=== PATIENT | male | born 1995 | race Hispanic/Latino ===

== ENCOUNTER 2021-04-07 12:20 | Inpatient (IN) | payer SELFPAY ==
[2021-04-07] VITALS (8 sets, daily range): BP systolic 97–132; BP diastolic 53–75
[~2021-04-07] VITALS: Ht 170.2 cm; Wt 106.6 kg
[2021-04-07] MEDS ORDERED: SODIUM CHLORIDE 0.9% 1000ML 1,000 ML IV STA (12:53)
[2021-04-07] MEDS ORDERED: ONDANSETRON HCL INJ 2MG/ML 2ML 2 MG/ML VIAL IV NR (13:00)
[2021-04-07 13:07] LABS: BASOPHILS % 0.2 % (0.0-1.0); HEMATOCRIT 50.6 % (38.2-49.6); HEMOGLOBIN 17.3 g/dL (14.0-18.0); LYMPHOCYTES # (AUTO) 1.2 (1.0-3.2); LYMPHOCYTES % 18.4 % (18.0-39.1); MEAN CORPUSCULAR HEMOGLOBIN 28.8 pg (28-32); MEAN CORPUSCULAR HGB CONC 34.2 g/dL (31-35); MEAN CORPUSCULAR VOLUME 84.3 fL (81-99); MONOCYTES # (AUTO) 0.4 (0.2-0.8); MONOCYTES % 6.3 % (4.4-11.3); NEUTROPHILS # (AUTO) 4.7 (2.1-6.9); NEUTROPHILS % 74.8 % (38.7-80.0); PLATELET COUNT 164 x10e3/uL (140-360); RED CELL DISTRIBUTION WIDTH 12.4 % (11.7-14.4)
[2021-04-07 13:16] LABS: INR 0.98; PROTHROMBIN TIME 13.2 seconds (11.9-14.5)
[2021-04-07 13:17] LABS: PARTIAL THROMBOPLASTIN TIME 35.3 seconds (23.8-35.5)
[2021-04-07 13:24] LABS: ALBUMIN 3.7 g/dL (3.5-5.0); ALBUMIN/GLOBULIN RATIO 0.8 (0.8-2.0); ANION GAP 20.4 mmol/L (8-16); CALCIUM 8.8 mg/dL (8.4-10.2); CREATININE, SERUM 1.34 mg/dL (0.72-1.25); POTASSIUM 3.4 mmol/L (3.5-5.1)
[2021-04-07 13:30] LABS: CREATINE KINASE MB 0.4 ng/mL (0-5.0)
[2021-04-07] MEDS ORDERED: REMDESIVIR 200MG 200 MG in SODIUM CHLORIDE 0.9% 100 ML 100 ML IV ONE ×2 (13:30→15:00)
[2021-04-07] MEDS: CEFTRIAXONE 1 GM in SODIUM CHLORIDE 0.9% 50ML 50 ML IV SCH (13:31)
[2021-04-07] MEDS ORDERED: REMDESIVIR 100MG 100 MG in SODIUM CHLORIDE 0.9% 100 ML IV SCH (15:30)
[2021-04-07] MEDS ORDERED: POTASSIUM CHLORIDE 20 MEQ TAB CR PO STA (16:47)
[2021-04-07] MEDS ORDERED: SODIUM CHLORIDE 0.9% 1000ML 1,000 ML IV ONE (17:00)
[2021-04-07] MEDS ORDERED: ZOLPIDEM TARTRATE 5 MG TAB PO PRN (17:00)
[2021-04-07] MEDS: ASCORBIC ACID 500 MG TAB PO SCH (17:33)
[2021-04-07] MEDS: ENOXAPARIN SOD INJ 40 MG/0.4 ML SYR SC SCH (20:43)
[2021-04-07] MEDS ORDERED: SALINE 0.65% NAS SOLN 1 SPRAY BTL PRN (21:00)
[2021-04-08] VITALS (24 sets, daily range): BP systolic 97–131; BP diastolic 50–90
[2021-04-08] MEDS ORDERED: DOCUSATE SODIUM 100 MG CAP PO PRN (05:30)
[2021-04-08] MEDS ORDERED: GUAIFENESIN/DEXTROMETHORPHAN LIQD 5 ML UDC NG PRN (05:30)
[2021-04-08 06:27] LABS: HEMATOCRIT 41.1 % (38.2-49.6); LYMPHOCYTES % 20.8 % (18.0-39.1); MEAN CORPUSCULAR HEMOGLOBIN 28.8 pg (28-32); MEAN CORPUSCULAR HGB CONC 33.6 g/dL (31-35); MEAN CORPUSCULAR VOLUME 85.8 fL (81-99); MONOCYTES # (AUTO) 0.3 (0.2-0.8); MONOCYTES % 6.5 % (4.4-11.3); NEUTROPHILS # (AUTO) 3.6 (2.1-6.9); NEUTROPHILS % 72.3 % (38.7-80.0); PLATELET COUNT 186 x10e3/uL (140-360); RED BLOOD COUNT 4.79 x10e6/uL (4.3-5.7); RED CELL DISTRIBUTION WIDTH 12.7 % (11.7-14.4)
[2021-04-08 06:34] LABS: HEMOGLOBIN 13.8 g/dL (14.0-18.0)
[2021-04-08 07:25] LABS: ALBUMIN 2.9 g/dL (3.5-5.0); ALBUMIN/GLOBULIN RATIO 0.7 (0.8-2.0); ANION GAP 15.5 mmol/L (8-16); CREATININE, SERUM 0.81 mg/dL (0.72-1.25); POTASSIUM 3.5 mmol/L (3.5-5.1)
[2021-04-08 07:28] LABS: CHOL/HDL RATIO 3.4 (3.9-4.7)
[2021-04-08] MEDS ORDERED: ACETAMINOPHEN 1000 MG/100 ML IV STA (07:46)
[2021-04-08] MEDS: DEXAMETHASONE SOD PHOS 10 MG/1 ML VIAL IV SCH (08:02)
[2021-04-08] MEDS: CEFTRIAXONE 1 GM in SODIUM CHLORIDE 0.9% 50ML 50 ML IV SCH (08:02)
[2021-04-08] MEDS: BENZONATATE 100 MG CAP PO SCH ×3 (08:03→20:09)
[2021-04-08] MEDS: LORATADINE 10 MG TAB PO SCH (08:03)
[2021-04-08] MEDS: ZINC SULFATE 50 MG CAP PO SCH (08:03)
[2021-04-08] MEDS: ASCORBIC ACID 500 MG TAB PO SCH ×2 (08:03→17:27)
[2021-04-08] MEDS: ENOXAPARIN SOD INJ 40 MG/0.4 ML SYR SC SCH ×2 (10:27→20:09)
[2021-04-08] MEDS ORDERED: REMDESIVIR 100MG 100 MG IV SCH (14:00)
[2021-04-08] MEDS ORDERED: REMDESIVIR 100MG 100 MG in SODIUM CHLORIDE 0.9% 100 ML IV SCH (15:30)
[2021-04-08] MEDS: REMDESIVIR 100MG 100 MG in SODIUM CHLORIDE 0.9% 100 ML IV SCH (15:42)
[2021-04-08] MEDS: ZOLPIDEM TARTRATE 5 MG TAB PO PRN (23:22)
[2021-04-09] VITALS (24 sets, daily range): BP systolic 90–134; BP diastolic 44–103
[2021-04-09 05:03] LABS: BASOPHILS % 0.2 % (0.0-1.0); HEMATOCRIT 41.6 % (38.2-49.6); HEMOGLOBIN 13.8 g/dL (14.0-18.0); LYMPHOCYTES % 21.7 % (18.0-39.1); MEAN CORPUSCULAR HEMOGLOBIN 28.5 pg (28-32); MEAN CORPUSCULAR HGB CONC 33.2 g/dL (31-35); MONOCYTES # (AUTO) 0.4 (0.2-0.8); MONOCYTES % 8.3 % (4.4-11.3); NEUTROPHILS # (AUTO) 3.3 (2.1-6.9); NEUTROPHILS % 68.8 % (38.7-80.0); PLATELET COUNT 262 x10e3/uL (140-360); RED BLOOD COUNT 4.84 x10e6/uL (4.3-5.7); RED CELL DISTRIBUTION WIDTH 12.8 % (11.7-14.4)
[2021-04-09 05:31] LABS: ALBUMIN 2.9 g/dL (3.5-5.0); ALBUMIN/GLOBULIN RATIO 0.7 (0.8-2.0); ANION GAP 16.8 mmol/L (8-16); CALCIUM 8.8 mg/dL (8.4-10.2); CREATININE, SERUM 0.76 mg/dL (0.72-1.25); POTASSIUM 3.8 mmol/L (3.5-5.1)
[2021-04-09] MEDS: DEXAMETHASONE SOD PHOS 10 MG/1 ML VIAL IV SCH (08:12)
[2021-04-09] MEDS: CEFTRIAXONE 1 GM in SODIUM CHLORIDE 0.9% 50ML 50 ML IV SCH (08:13)
[2021-04-09] MEDS: ASCORBIC ACID 500 MG TAB PO SCH ×2 (08:13→17:03)
[2021-04-09] MEDS: LORATADINE 10 MG TAB PO SCH (08:13)
[2021-04-09] MEDS: ENOXAPARIN SOD INJ 40 MG/0.4 ML SYR SC SCH ×2 (08:13→20:26)
[2021-04-09] MEDS: BENZONATATE 100 MG CAP PO SCH ×3 (08:13→20:26)
[2021-04-09] MEDS: ZINC SULFATE 50 MG CAP PO SCH (08:16)
[2021-04-09] MEDS: REMDESIVIR 100MG 100 MG in SODIUM CHLORIDE 0.9% 100 ML IV SCH (14:27)
[2021-04-09] MEDS: GUAIFENESIN/DEXTROMETHORPHAN 237 ML SYRUP PO PRN (21:12)
[2021-04-10] VITALS (24 sets, daily range): BP systolic 107–144; BP diastolic 66–91
[2021-04-10] MEDS: GUAIFENESIN/DEXTROMETHORPHAN 237 ML SYRUP PO PRN (03:07)
[2021-04-10 05:37] LABS: HEMATOCRIT 40.4 % (38.2-49.6); HEMOGLOBIN 13.4 g/dL (14.0-18.0); LYMPHOCYTES # (AUTO) 1.2 (1.0-3.2); LYMPHOCYTES % 14.7 % (18.0-39.1); MEAN CORPUSCULAR HEMOGLOBIN 28.2 pg (28-32); MEAN CORPUSCULAR HGB CONC 33.2 g/dL (31-35); MEAN CORPUSCULAR VOLUME 85.1 fL (81-99); MONOCYTES # (AUTO) 0.8 (0.2-0.8); MONOCYTES % 10.3 % (4.4-11.3); NEUTROPHILS # (AUTO) 5.8 (2.1-6.9); NEUTROPHILS % 74.1 % (38.7-80.0); PLATELET COUNT 386 x10e3/uL (140-360); RED BLOOD COUNT 4.75 x10e6/uL (4.3-5.7); RED CELL DISTRIBUTION WIDTH 12.7 % (11.7-14.4)
[2021-04-10 06:01] LABS: ALBUMIN 2.8 g/dL (3.5-5.0); ALBUMIN/GLOBULIN RATIO 0.7 (0.8-2.0); ANION GAP 15.7 mmol/L (8-16); CALCIUM 8.5 mg/dL (8.4-10.2); CREATININE, SERUM 0.71 mg/dL (0.72-1.25); POTASSIUM 3.7 mmol/L (3.5-5.1)
[2021-04-10] MEDS: ENOXAPARIN SOD INJ 40 MG/0.4 ML SYR SC SCH ×2 (08:51→20:22)
[2021-04-10] MEDS: CEFTRIAXONE 1 GM in SODIUM CHLORIDE 0.9% 50ML 50 ML IV SCH (08:51)
[2021-04-10] MEDS: LORATADINE 10 MG TAB PO SCH (08:51)
[2021-04-10] MEDS: DEXAMETHASONE SOD PHOS 10 MG/1 ML VIAL IV SCH (08:51)
[2021-04-10] MEDS: ZINC SULFATE 50 MG CAP PO SCH (08:51)
[2021-04-10] MEDS: BENZONATATE 100 MG CAP PO SCH ×3 (08:51→20:22)
[2021-04-10] MEDS: ASCORBIC ACID 500 MG TAB PO SCH ×2 (08:51→16:05)
[2021-04-10] MEDS ORDERED: LACTATED RINGER'S 500 ML INJ ONE (11:15)
[2021-04-10] MEDS: GUAIFENESIN/CODEINE 5 ML LIQD PO PRN ×2 (13:38→22:46)
[2021-04-10] MEDS: REMDESIVIR 100MG 100 MG in SODIUM CHLORIDE 0.9% 100 ML IV SCH (14:12)
[2021-04-11] VITALS (25 sets, daily range): BP systolic 122–147; BP diastolic 70–106
[2021-04-11] MEDS: ZOLPIDEM TARTRATE 5 MG TAB PO PRN (00:06)
[2021-04-11] MEDS: DEXMEDETOMIDINE 400MCG/NS100ML 100 ML IV PRN ×4 (02:48→21:04)
[2021-04-11] MEDS: ASCORBIC ACID 500 MG TAB PO SCH ×2 (08:36→12:34)
[2021-04-11] MEDS: ZINC SULFATE 50 MG CAP PO SCH (08:36)
[2021-04-11] MEDS: BENZONATATE 100 MG CAP PO SCH ×3 (08:36→21:03)
[2021-04-11] MEDS: LORATADINE 10 MG TAB PO SCH (08:36)
[2021-04-11] MEDS: CEFTRIAXONE 1 GM in SODIUM CHLORIDE 0.9% 50ML 50 ML IV SCH (08:57)
[2021-04-11] MEDS: DEXAMETHASONE SOD PHOS 10 MG/1 ML VIAL IV SCH (08:57)
[2021-04-11] MEDS: ENOXAPARIN SOD INJ 40 MG/0.4 ML SYR SC SCH ×2 (08:57→21:04)
[2021-04-11] MEDS: REMDESIVIR 100MG 100 MG in SODIUM CHLORIDE 0.9% 100 ML IV SCH (13:47)
[2021-04-11] MEDS: FUROSEMIDE INJ 10 MG/ML 2 ML VIAL IV SCH (13:55)
[2021-04-11] MEDS ORDERED: ACETAMINOPHEN 325 MG TAB PO PRN (16:00)
[2021-04-12] VITALS (25 sets, daily range): BP systolic 98–133; BP diastolic 48–109
[2021-04-12] MEDS: FUROSEMIDE INJ 10 MG/ML 2 ML VIAL IV SCH ×2 (02:18→14:56)
[2021-04-12] MEDS: DEXMEDETOMIDINE 400MCG/NS100ML 100 ML IV PRN ×5 (03:00→23:52)
[2021-04-12 06:01] LABS: BASOPHILS % 0.3 % (0.0-1.0); EOSINOPHILS % 0.1 % (0.0-6.0); HEMATOCRIT 42.3 % (38.2-49.6); LYMPHOCYTES % 6.5 % (18.0-39.1); MEAN CORPUSCULAR HEMOGLOBIN 28.8 pg (28-32); MEAN CORPUSCULAR HGB CONC 33.1 g/dL (31-35); MONOCYTES # (AUTO) 1.1 (0.2-0.8); MONOCYTES % 7.1 % (4.4-11.3); NEUTROPHILS # (AUTO) 12.6 (2.1-6.9); PLATELET COUNT 464 x10e3/uL (140-360); RED BLOOD COUNT 4.86 x10e6/uL (4.3-5.7); RED CELL DISTRIBUTION WIDTH 12.7 % (11.7-14.4)
[2021-04-12 06:29] LABS: ALBUMIN 2.6 g/dL (3.5-5.0); ALBUMIN/GLOBULIN RATIO 0.6 (0.8-2.0); ANION GAP 15.4 mmol/L (8-16); CALCIUM 9.1 mg/dL (8.4-10.2); CREATININE, SERUM 0.66 mg/dL (0.72-1.25); POTASSIUM 4.4 mmol/L (3.5-5.1)
[2021-04-12] MEDS: ZINC SULFATE 50 MG CAP PO SCH (09:00)
[2021-04-12] MEDS: LORATADINE 10 MG TAB PO SCH (09:00)
[2021-04-12] MEDS: ASCORBIC ACID 500 MG TAB PO SCH ×2 (09:00→16:51)
[2021-04-12] MEDS: DEXAMETHASONE SOD PHOS 10 MG/1 ML VIAL IV SCH (09:44)
[2021-04-12] MEDS: ENOXAPARIN SOD INJ 40 MG/0.4 ML SYR SC SCH ×2 (09:45→20:36)
[2021-04-12] MEDS: CEFTRIAXONE 1 GM in SODIUM CHLORIDE 0.9% 50ML 50 ML IV SCH (09:45)
[2021-04-12] MEDS: BENZONATATE 100 MG CAP PO SCH ×3 (09:51→20:36)
[2021-04-13] VITALS (25 sets, daily range): BP systolic 89–132; BP diastolic 56–110
[2021-04-13] MEDS: FUROSEMIDE INJ 10 MG/ML 2 ML VIAL IV SCH ×2 (01:23→15:27)
[2021-04-13 05:29] LABS: BASOPHILS % 0.3 % (0.0-1.0); EOSINOPHILS % 0.3 % (0.0-6.0); HEMATOCRIT 42.3 % (38.2-49.6); HEMOGLOBIN 14.1 g/dL (14.0-18.0); LYMPHOCYTES # (AUTO) 0.9 (1.0-3.2); LYMPHOCYTES % 7.4 % (18.0-39.1); MEAN CORPUSCULAR HEMOGLOBIN 28.8 pg (28-32); MEAN CORPUSCULAR HGB CONC 33.3 g/dL (31-35); MEAN CORPUSCULAR VOLUME 86.5 fL (81-99); MONOCYTES # (AUTO) 1.1 (0.2-0.8); MONOCYTES % 9.4 % (4.4-11.3); NEUTROPHILS # (AUTO) 9.1 (2.1-6.9); NEUTROPHILS % 76.5 % (38.7-80.0); PLATELET COUNT 361 x10e3/uL (140-360); RED BLOOD COUNT 4.89 x10e6/uL (4.3-5.7); RED CELL DISTRIBUTION WIDTH 12.9 % (11.7-14.4)
[2021-04-13 05:56] LABS: ALBUMIN 2.6 g/dL (3.5-5.0); ALBUMIN/GLOBULIN RATIO 0.6 (0.8-2.0); ANION GAP 13.2 mmol/L (8-16); CALCIUM 8.8 mg/dL (8.4-10.2); CREATININE, SERUM 0.61 mg/dL (0.72-1.25); POTASSIUM 4.2 mmol/L (3.5-5.1)
[2021-04-13] MEDS: DEXAMETHASONE SOD PHOS 10 MG/1 ML VIAL IV SCH (08:43)
[2021-04-13] MEDS: LORATADINE 10 MG TAB PO SCH (08:44)
[2021-04-13] MEDS: ASCORBIC ACID 500 MG TAB PO SCH ×2 (08:44→17:28)
[2021-04-13] MEDS: ENOXAPARIN SOD INJ 40 MG/0.4 ML SYR SC SCH ×2 (08:44→21:00)
[2021-04-13] MEDS: BENZONATATE 100 MG CAP PO SCH ×3 (08:44→21:00)
[2021-04-13] MEDS: CEFTRIAXONE 1 GM in SODIUM CHLORIDE 0.9% 50ML 50 ML IV SCH (08:44)
[2021-04-13] MEDS: ZINC SULFATE 50 MG CAP PO SCH (08:44)
[2021-04-13] MEDS: DEXMEDETOMIDINE 400MCG/NS100ML 100 ML IV PRN (15:51)
[2021-04-14] VITALS (25 sets, daily range): BP systolic 86–128; BP diastolic 52–81
[2021-04-14] MEDS: FUROSEMIDE INJ 10 MG/ML 2 ML VIAL IV SCH ×2 (02:50→15:25)
[2021-04-14 07:27] LABS: BASOPHILS # (AUTO) 0.1 (0.0-0.1); BASOPHILS % 0.4 % (0.0-1.0); EOSINOPHILS # (AUTO) 0.2 (0.0-0.4); EOSINOPHILS % 1.2 % (0.0-6.0); HEMATOCRIT 45.7 % (38.2-49.6); HEMOGLOBIN 15.1 g/dL (14.0-18.0); LYMPHOCYTES # (AUTO) 1.7 (1.0-3.2); MEAN CORPUSCULAR HEMOGLOBIN 28.7 pg (28-32); MEAN CORPUSCULAR VOLUME 86.9 fL (81-99); MONOCYTES # (AUTO) 1.4 (0.2-0.8); MONOCYTES % 11.2 % (4.4-11.3); NEUTROPHILS # (AUTO) 8.7 (2.1-6.9); NEUTROPHILS % 67.5 % (38.7-80.0); PLATELET COUNT 674 x10e3/uL (140-360); RED BLOOD COUNT 5.26 x10e6/uL (4.3-5.7); RED CELL DISTRIBUTION WIDTH 12.7 % (11.7-14.4)
[2021-04-14 07:49] LABS: ANION GAP 17.3 mmol/L (8-16); CALCIUM 9.2 mg/dL (8.4-10.2); CREATININE, SERUM 0.7 mg/dL (0.72-1.25); POTASSIUM 4.3 mmol/L (3.5-5.1)
[2021-04-14] MEDS: CEFTRIAXONE 1 GM in SODIUM CHLORIDE 0.9% 50ML 50 ML IV SCH (08:11)
[2021-04-14] MEDS: BENZONATATE 100 MG CAP PO SCH ×3 (08:13→20:08)
[2021-04-14] MEDS: ASCORBIC ACID 500 MG TAB PO SCH ×2 (08:13→18:00)
[2021-04-14] MEDS: ENOXAPARIN SOD INJ 40 MG/0.4 ML SYR SC SCH (08:13)
[2021-04-14] MEDS: LORATADINE 10 MG TAB PO SCH (08:13)
[2021-04-14] MEDS: ZINC SULFATE 50 MG CAP PO SCH (08:13)
[2021-04-14] MEDS: DEXAMETHASONE SOD PHOS 10 MG/1 ML VIAL IV SCH (11:10)
[2021-04-14 14:53] LABS: BAND NEUTROPHILS % (MANUAL) 2 %; LYMPHOCYTES % (MANUAL) 14 % (19-48); MONOCYTES % (MANUAL) 18 % (3.4-9.0); NEUTROPHILS % (MANUAL) 66 % (40-74)
[2021-04-14 14:59] LABS: PLATELET MORPHOLOGY COMMENT NORMAL
[2021-04-14 15:00] LABS: RBC MORPHOLOGY COMMENT NORMAL
[2021-04-14 15:01] LABS: HYPOCHROMASIA SLIGHT
[2021-04-14 15:02] LABS: PLATELET ESTIMATE SLIGHTLY INCREASED
[2021-04-15] VITALS (17 sets, daily range): BP systolic 84–126; BP diastolic 57–83
[2021-04-15] MEDS: FUROSEMIDE INJ 10 MG/ML 2 ML VIAL IV SCH ×2 (03:56→16:52)
[2021-04-15] MEDS: LORATADINE 10 MG TAB PO SCH (08:38)
[2021-04-15] MEDS: CEFTRIAXONE 1 GM in SODIUM CHLORIDE 0.9% 50ML 50 ML IV SCH (08:38)
[2021-04-15] MEDS: ZINC SULFATE 50 MG CAP PO SCH (08:38)
[2021-04-15] MEDS: BENZONATATE 100 MG CAP PO SCH ×3 (08:38→20:54)
[2021-04-15] MEDS: DEXAMETHASONE SOD PHOS 10 MG/1 ML VIAL IV SCH (08:38)
[2021-04-15] MEDS: ASCORBIC ACID 500 MG TAB PO SCH ×2 (08:38→16:52)
[2021-04-15] MEDS: GUAIFENESIN/CODEINE 5 ML LIQD PO PRN (20:54)
[2021-04-16] VITALS (8 sets, daily range): BP systolic 107–135; BP diastolic 68–96
[2021-04-16 04:11] LABS: BASOPHILS # (AUTO) 0.1 (0.0-0.1); BASOPHILS % 0.5 % (0.0-1.0); EOSINOPHILS # (AUTO) 0.1 (0.0-0.4); EOSINOPHILS % 0.5 % (0.0-6.0); HEMATOCRIT 43.1 % (38.2-49.6); HEMOGLOBIN 14.3 g/dL (14.0-18.0); LYMPHOCYTES # (AUTO) 2.7 (1.0-3.2); LYMPHOCYTES % 20.4 % (18.0-39.1); MEAN CORPUSCULAR HGB CONC 33.2 g/dL (31-35); MEAN CORPUSCULAR VOLUME 87.4 fL (81-99); MONOCYTES # (AUTO) 1.8 (0.2-0.8); MONOCYTES % 13.4 % (4.4-11.3); NEUTROPHILS # (AUTO) 7.4 (2.1-6.9); NEUTROPHILS % 56.2 % (38.7-80.0); PLATELET COUNT 414 x10e3/uL (140-360); RED BLOOD COUNT 4.93 x10e6/uL (4.3-5.7); RED CELL DISTRIBUTION WIDTH 12.4 % (11.7-14.4)
[2021-04-16 04:31] LABS: ALBUMIN 3.2 g/dL (3.5-5.0); ALBUMIN/GLOBULIN RATIO 0.8 (0.8-2.0); ANION GAP 13.9 mmol/L (8-16); CALCIUM 8.9 mg/dL (8.4-10.2); CREATININE, SERUM 0.74 mg/dL (0.72-1.25); POTASSIUM 3.9 mmol/L (3.5-5.1)
[2021-04-16] MEDS: FUROSEMIDE INJ 10 MG/ML 2 ML VIAL IV SCH ×2 (06:21→16:28)
[2021-04-16] MEDS: DEXAMETHASONE SOD PHOS 10 MG/1 ML VIAL IV SCH (08:36)
[2021-04-16] MEDS: ZINC SULFATE 50 MG CAP PO SCH (08:37)
[2021-04-16] MEDS: ASCORBIC ACID 500 MG TAB PO SCH ×2 (08:37→16:28)
[2021-04-16] MEDS: LORATADINE 10 MG TAB PO SCH (08:37)
[2021-04-16] MEDS: CEFTRIAXONE 1 GM in SODIUM CHLORIDE 0.9% 50ML 50 ML IV SCH (08:37)
[2021-04-16] MEDS: BENZONATATE 100 MG CAP PO SCH ×3 (08:37→20:55)
[2021-04-17] VITALS (8 sets, daily range): BP systolic 122–144; BP diastolic 60–89
[2021-04-17] MEDS: FUROSEMIDE INJ 10 MG/ML 2 ML VIAL IV SCH ×2 (04:00→16:17)
[2021-04-17] MEDS: CEFTRIAXONE 1 GM in SODIUM CHLORIDE 0.9% 50ML 50 ML IV SCH (08:19)
[2021-04-17] MEDS: DEXAMETHASONE SOD PHOS 10 MG/1 ML VIAL IV SCH (08:19)
[2021-04-17] MEDS: ZINC SULFATE 50 MG CAP PO SCH (08:20)
[2021-04-17] MEDS: ASCORBIC ACID 500 MG TAB PO SCH ×2 (08:20→16:17)
[2021-04-17] MEDS: LORATADINE 10 MG TAB PO SCH (08:20)
[2021-04-17] MEDS: BENZONATATE 100 MG CAP PO SCH ×3 (08:20→20:59)
[2021-04-18] MEDS: FUROSEMIDE INJ 10 MG/ML 2 ML VIAL IV SCH ×2 (03:26→15:26)
[2021-04-18 04:53] VITALS: BP 127/63
[2021-04-18] MEDS ORDERED: LASIX20 MG PO (07:10)
[2021-04-18] MEDS ORDERED: ASCORBIC ACID500 MG PO (07:10)
[2021-04-18] MEDS ORDERED: Zinc Sulfate PO (07:10)
[2021-04-18] MEDS ORDERED: LORATADINE10 MG PO (07:10)
[2021-04-18] MEDS ORDERED: TESSALON PERLE100 MG PO (07:10)
[2021-04-18] MEDS ORDERED: PREDNISONE20 MG PO (07:10)
[2021-04-18 08:17] VITALS: BP 121/78
[2021-04-18] MEDS: BENZONATATE 100 MG CAP PO SCH ×3 (09:05→20:36)
[2021-04-18] MEDS: LORATADINE 10 MG TAB PO SCH (09:05)
[2021-04-18] MEDS: DEXAMETHASONE SOD PHOS 10 MG/1 ML VIAL IV SCH (09:05)
[2021-04-18] MEDS: ASCORBIC ACID 500 MG TAB PO SCH ×2 (09:05→17:22)
[2021-04-18] MEDS: ZINC SULFATE 50 MG CAP PO SCH (09:05)
[2021-04-18 10:13] VITALS: BP 121/78
[2021-04-18] MEDS ORDERED: METOPROLOL TARTRATE 25 MG TAB PO SCH (11:00)
[2021-04-18 11:49] VITALS: BP 111/81
[2021-04-18 16:20] VITALS: BP 120/74
[2021-04-18 20:00] VITALS: BP 138/92
[2021-04-18] MEDS: METOPROLOL TARTRATE 25 MG TAB PO SCH (21:30)
[2021-04-19] VITALS: BP 100/61
[2021-04-19] MEDS: FUROSEMIDE INJ 10 MG/ML 2 ML VIAL IV SCH ×2 (03:28→16:01)
[2021-04-19 04:00] VITALS: BP 102/62
[2021-04-19] MEDS: METOPROLOL TARTRATE 25 MG TAB PO SCH ×3 (06:00→22:46)
[2021-04-19 06:20] LABS: BASOPHILS # (AUTO) 0.1 (0.0-0.1); BASOPHILS % 0.4 % (0.0-1.0); EOSINOPHILS % 0.1 % (0.0-6.0); HEMATOCRIT 44.5 % (38.2-49.6); HEMOGLOBIN 14.7 g/dL (14.0-18.0); LYMPHOCYTES # (AUTO) 3.5 (1.0-3.2); LYMPHOCYTES % 21.4 % (18.0-39.1); MEAN CORPUSCULAR HEMOGLOBIN 29.1 pg (28-32); MEAN CORPUSCULAR VOLUME 88.1 fL (81-99); MONOCYTES # (AUTO) 1.7 (0.2-0.8); MONOCYTES % 10.6 % (4.4-11.3); NEUTROPHILS % 61.4 % (38.7-80.0); PLATELET COUNT 361 x10e3/uL (140-360); RED BLOOD COUNT 5.05 x10e6/uL (4.3-5.7); RED CELL DISTRIBUTION WIDTH 12.5 % (11.7-14.4)
[2021-04-19 06:23] LABS: ALBUMIN 3.5 g/dL (3.5-5.0); ALBUMIN/GLOBULIN RATIO 0.9 (0.8-2.0); ANION GAP 13.8 mmol/L (8-16); CREATININE, SERUM 0.73 mg/dL (0.72-1.25); POTASSIUM 3.8 mmol/L (3.5-5.1)
[2021-04-19] MEDS: BENZONATATE 100 MG CAP PO SCH ×3 (08:52→22:41)
[2021-04-19] MEDS: ZINC SULFATE 50 MG CAP PO SCH (08:52)
[2021-04-19] MEDS: ASCORBIC ACID 500 MG TAB PO SCH ×2 (08:52→16:01)
[2021-04-19] MEDS: DEXAMETHASONE SOD PHOS 10 MG/1 ML VIAL IV SCH (08:52)
[2021-04-19] MEDS: LORATADINE 10 MG TAB PO SCH (08:52)
[2021-04-19 12:14] VITALS: BP 115/66
[2021-04-19 12:27] VITALS: BP 106/71
[2021-04-19 18:33] VITALS: BP 125/84
[2021-04-19 20:00] VITALS: BP 109/90
[2021-04-20] VITALS: BP 126/88
[2021-04-20] MEDS: FUROSEMIDE INJ 10 MG/ML 2 ML VIAL IV SCH (03:52)
[2021-04-20 04:01] VITALS: BP 120/85
[2021-04-20] MEDS: METOPROLOL TARTRATE 25 MG TAB PO SCH ×2 (06:09→13:47)
[2021-04-20 07:12] VITALS: BP 120/85
[2021-04-20] MEDS: ZINC SULFATE 50 MG CAP PO SCH (09:29)
[2021-04-20] MEDS: LORATADINE 10 MG TAB PO SCH (09:29)
[2021-04-20] MEDS: BENZONATATE 100 MG CAP PO SCH (09:29)
[2021-04-20] MEDS: ASCORBIC ACID 500 MG TAB PO SCH (09:29)
[2021-04-20] MEDS: DEXAMETHASONE SOD PHOS 10 MG/1 ML VIAL IV SCH (09:29)
[2021-04-20 09:35] VITALS: BP 135/79
== END 2021-04-20 14:30 | disposition home or self-care (01) | DRG 177 ==
LOC: ER 12:54 → ERHOLD 14:41 → ICU 16:54 → IMCU 04-15 15:41
PROVIDERS: ADMIT Internal Medicine; ATTEND Internal Medicine
PROC: 8E0ZXY6 Isolation (ICD-10-PCS; 2021-04-07)
PROC: XW043E5 Introduction of Remdesivir Anti-infective into Central Vein, Percutaneous Approach, New Technology Group 5 (ICD-10-PCS; 2021-04-07)
PROC: 5A0935A Assistance with Respiratory Ventilation, Less than 24 Consecutive Hours, High Flow/Velocity Cannula (ICD-10-PCS; 2021-04-07)
PROC: 02HV33Z Insertion of Infusion Device into Superior Vena Cava, Percutaneous Approach (ICD-10-PCS; principal; 2021-04-09)
PROC: 5A09357 Assistance with Respiratory Ventilation, Less than 24 Consecutive Hours, Continuous Positive Airway Pressure (ICD-10-PCS; 2021-04-11)
DX: U07.1 COVID-19 (principal); J12.82 Pneumonia due to coronavirus disease 2019; J96.01 Acute respiratory failure with hypoxia; N17.9 Acute kidney failure, unspecified; B17.8 Other specified acute viral hepatitis; E87.1 Hypo-osmolality and hyponatremia; E87.6 Hypokalemia; E66.9 Obesity, unspecified; Z68.39 Body mass index [BMI] 39.0-39.9, adult
CPT/HCPCS: 36415; 36569; 71045; 80048; 80053; 80061; 82550; 82553; 83036; 84484; 85025; 85610; 85730; 87040; 93005; 94660; 99284; J0456; J0696; J1100; J1650; J1940; J7030; J7050; J7121; U0002